=== PATIENT | female | born 1935 | race Caucasian/White ===

== ENCOUNTER 2017-11-25 07:58 | Day surgery (SDC) | payer MEDICARE, OTHER ==
[~2017-11-25 07:58] MED LIST: PROPOFOL INJ 200 MG/20 ML VIAL IV ONE
[2017-11-25 09:54] VITALS: BP 145/82
--- NOTE | 2017-11-25 12:23 | Operative Report ---
Operative Report DATE OF SURGERY: 11/25/17 Operative Report: The risks, benefits and alternatives of the procedure including risks of bleeding, perforation requiring surgery are explained to the patient in detail and informed consent was obtained. Patient was taken back to the endoscopy suite and placed in the left, lateral decubital position. Timeout was called. Propofol medications administered. A rectal examination is done which did not reveal any masses, tears or fissures. An Olympus videoscope was inserted into the patient's rectum. The scope was then carefully advanced all the way to the cecum. Cecum was identified by the usual anatomical landmarks including the ileocecal valve as well as the appendiceal office. Photodocumentation was obtained. Prep is good. Scope was then sequentially pulled back via the rest segments of the colon including the ascending colon, hepatic flexure, transverse colon, splenic flexure, descending colon and finding to the rectosigmoid portions of the colon. Retroflexion maneuver is performed. PREOPERATIVE DIAGNOSIS: Abnormal findings noted in the feces. POSTOPERATIVE DIAGNOSIS: Diverticulosis. Internal hemorrhoids OPERATION: Diagnostic colonoscopy. SURGEON: MARTHA TREVINO ANESTHESIA: LMAC TISSUE REMOVED OR ALTERED: None. COMPLICATIONS: None. ESTIMATED BLOOD LOSS: None. INTRAOPERATIVE FINDINGS: As noted above. PROCEDURE: Patient tolerated procedure well. No immediate postprocedure complications are noted. Patient discharged in good condition. Discharge date 11/25/2017. Discharge diet: Regular. Discharge activity: Regular. 2-3 week follow-up to discuss findings. Patient is instructed to call the office or proceed to the emergency room should there be any further problems or questions. At this point given her age, colorectal cancer screening either by optical colonoscopy, CT colopathy, or Cologuard colon cancer testing does not need to be further performed.
== END 2017-11-25 09:54 | disposition home or self-care (01) ==
LOC: END 07:58
PROVIDERS: ATTEND Internal Medicine Gastroenterology
PROC: 0DJD8ZZ Inspection of Lower Intestinal Tract, Via Natural or Artificial Opening Endoscopic (ICD-10-PCS; principal; 2017-11-25 09:30)
DX: K64.8 Other hemorrhoids (principal); K57.30 Diverticulosis of large intestine without perforation or abscess without bleeding; E78.2 Mixed hyperlipidemia; Z79.899 Other long term (current) drug therapy
CPT/HCPCS: 45378; J2704; 811

== ENCOUNTER 2019-03-22 08:28 | Emergency (ER) | payer MEDICARE, OTHER ==
[2019-03-22] MEDS ORDERED: HYDROCODONE/ACETAMINOPHEN 5-325 MG TABLET PO ONE (09:36)
--- NOTE | 2019-03-22 09:37 | ER Document Report ---
ED Medical Screen (RME) - General Chief Complaint: Back Pain Stated Complaint: BACK PAIN Time Seen by Provider: 03/22/19 09:36 Mode of Arrival: Ambulatory Information source: Patient Notes: Patient presents complaining of low back pain for the past 5 days. Patient states her symptoms started after performing a low impact aerobics. Patient denies any specific injury. Patient denies any fever. Patient denies any urinary retention. Patient denies any significant medical history. I have greeted and performed a rapid initial assessment of this patient. A comprehensive ED assessment and evaluation of the patient, analysis of test results and completion of the medical decision making process will be conducted by additional ED providers. TRAVEL OUTSIDE OF THE [place] IN LAST 30 DAYS: No - Related Data Allergies/Adverse Reactions: mold Allergy (Mild, Verified 11/25/17 08:11) SNEEZING/COUGHING Past Medical History - Past Medical History Cardiac Medical History: Denies: Hx Coronary Artery Disease, Hx Heart Attack, Hx Hypertension Pulmonary Medical History: Denies: Hx Asthma, Hx Bronchitis, Hx COPD, Hx Pneumonia Neurological Medical History: Denies: Hx Cerebrovascular Accident, Hx Seizures Musculoskeltal Medical History: Denies Hx Arthritis - Immunizations Hx Diphtheria, Pertussis, Tetanus Vaccination: Yes Influenza Administration Date for 07/2017 - 12/2017 Season: 07/21/17 Physical Exam - Vital signs Vitals: Temp Pulse Resp BP Pulse Ox 97.5 F 88 16 164/94 H 95 03/22/19 08:41 03/22/19 08:41 03/22/19 08:41 03/22/19 08:41 03/22/19 08:41 - Back Back: Vertebra tenderness - Lower lumbar tenderness, left paraspinal tenderness Course - Vital Signs Vital signs: Temp Pulse Resp BP Pulse Ox 97.5 F 88 16 164/94 H 95 03/22/19 08:41 03/22/19 08:41 03/22/19 08:41 03/22/19 08:41 03/22/19 08:41
--- NOTE | 2019-03-22 10:24 | RADIOLOGY REPORT (SQ) ---
EXAM DESCRIPTION: L SPINE WHOLE COMPLETED DATE/TIME: 03/22/2019 9:58 am REASON FOR STUDY: low back pain COMPARISON: None. NUMBER OF VIEWS: Five views including obliques. TECHNIQUE: AP, lateral, oblique, and sacral radiographic images acquired of the lumbar spine. LIMITATIONS: None. FINDINGS: MINERALIZATION: Osteopenia. SEGMENTATION: Normal. No transitional anatomy. ALIGNMENT: Scoliotic. Mild grade 1 listhesis at multiple levels. VERTEBRAE: Maintained height. No fracture or worrisome bone lesion. DISCS: Multilevel disc space narrowing with osteophytes. POSTERIOR ELEMENTS: Pedicles and facets are intact. No pars defect or posterior arch defects. Facet arthropathy is present. HARDWARE: None in the spine. PARASPINAL SOFT TISSUES: Normal. PELVIS: Intact as visualized. No fractures or worrisome bone lesions. SI joints intact. OTHER: No other significant finding. IMPRESSION: 1. Osteopenia. Spondylosis and scoliosis. No gross fracture allowing for limiting osteopenia. TECHNICAL DOCUMENTATION: JOB ID: [id number] [employer]- All Rights Reserved Reading location - IP/workstation name: [email or web address]
[2019-03-22 11:59] VITALS: BP 135/89
--- NOTE | 2019-03-24 13:44 | ER Document Report ---
Entered by SHAYE ALICEA SCRIBE 03/22/19 1123 Acting as scribe for:LISE MOON MD ED General - General Chief Complaint: Back Pain Stated Complaint: BACK PAIN Time Seen by Provider: 03/22/19 09:36 Primary Care Provider: SAVANNAH CHOE MD [Primary Care Provider] - Follow up as needed Mode of Arrival: Ambulatory Information source: Patient Notes: This 83-year-old healthy female patient comes emergency room for low back pain radiating to her left leg. She reports she has had back pain from time to time over the years. About 2 weeks ago she was filling up gas cans and caused her low back to become a little painful. 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 She states that she never completely filled the 5 gallon gas can so they do not get too heavy. This past Saturday morning she attended a water aerobics class and thinks she may have overdone the exercising. Saturday evening she began having some pain in her left lumbar sacral back region. It is gotten worse over the past few days, she notices during the day when she is up and about is not too bad, but when she lays down at night in bed after about 1 to 2 hours she wakes up with severe pain in her left lumbar sacral buttock region and the pain goes to her left anterior thigh region. It does not go below the knee. There is no numbness or burning associated with pain. She did see her primary care provider on and was prescribed Flexeril, also taking Tylenol and Aleve. She reports it does not seem to have improved her discomfort. TRAVEL OUTSIDE OF THE [place] IN LAST 30 DAYS: No - Related Data Allergies/Adverse Reactions: mold Allergy (Mild, Verified 11/25/17 08:11) SNEEZING/COUGHING Past Medical History - General Information source: Patient - Social History Smoking Status: Never Smoker Cigarette use (# per day): No Chew tobacco use (# tins/day): No Smoking Education Provided: No Frequency of alcohol use: Occasional Drug Abuse: None Family History: Reviewed & Not Pertinent Patient has suicidal ideation: No Patient has homicidal ideation: No Past Surgical History: Reports: Hx Appendectomy, Hx Cholecystectomy, Hx Hysterec hernandez, Hx Tonsillectomy, Other - shoulder, thumb surgery - Immunizations Hx Diphtheria, Pertussis, Tetanus Vaccination: Yes Hx Pneumococcal Vaccination: 10/21/15 Review of Systems - Review of Systems Constitutional: No symptoms reported EENT: No symptoms reported Cardiovascular: No symptoms reported Respiratory: No symptoms reported Gastrointestinal: No symptoms reported Genitourinary: No symptoms reported Female Genitourinary: No symptoms reported Musculoskeletal: See HPI, Back pain Skin: No symptoms reported Hematologic/Lymphatic: No symptoms reported Neurological/Psychological: No symptoms reported -: Yes All other systems reviewed and negative Physical Exam - Vital signs Vitals: Temp Pulse Resp BP Pulse Ox 97.5 F 88 16 164/94 H 95 03/22/19 08:41 03/22/19 08:41 03/22/19 08:41 03/22/19 08:41 03/22/19 08:41 - Notes Notes: PHYSICAL EXAMINATION: GENERAL: Well-appearing, well-nourished and in no acute distress. HEAD: Atraumatic, normocephalic. EYES: Pupils equal round and reactive to light, extraocular movements intact, sclera anicteric, conjunctiva are normal. ENT: nares patent, oropharynx clear without exudates. Moist mucous membranes. NECK: Normal range of motion, supple without lymphadenopathy LUNGS: Breath sounds clear to auscultation bilaterally and equal. No wheezes rales or rhonchi. HEART: Regular rate and rhythm without murmurs ABDOMEN: Soft, nontender, normoactive bowel sounds. No guarding, no rebound. No masses appreciated. BACK: There is tenderness to palpate the right lumbar and sacral back and buttock muscles. EXTREMITIES: Normal range of motion, no pitting or edema. No cyanosis. There is tenderness to palpate the distal anterior thigh muscles and suprapatellar tendon region. NEUROLOGICAL: Cranial nerves grossly intact. Normal speech, normal gait. Normal sensory, motor, and reflex exams. PSYCH: Normal mood, normal affect. SKIN: Warm, Dry, normal turgor, no rashes or lesions noted. Course - Vital Signs Vital signs: Temp Pulse Resp BP Pulse Ox 97.6 F 84 16 135/89 H 95 03/22/19 11:56 03/22/19 11:56 03/22/19 11:56 03/22/19 11:56 03/22/19 11:56 Discharge - Discharge Clinical Impression: Low back strain Condition: Stable Disposition: HOME, SELF-CARE Additional Instructions: Low Back Pain Three out of every four people will have an episode of disabling back pain during their lifetime. Most commonly the pain is due to straining of the muscles and ligaments in the low back. Usual treatment includes: (1) Rest on a firm surface. Avoid lying on your stomach. (2) Ice pack the painful area. After a few days, gentle heat may be used intermittently to relax the area, or ice packs can be continued. (3) Medication may be needed -- muscle relaxers and antiinflammatory medicines are commonly used. (4) As the back improves, exercises are prescribed to strengthen the back and abdominal muscles. Your doctor will advise you on the proper care for your back at each stage in your recovery. You may be better in a few days -- or healing may take several weeks. If new symptoms of a "herniated disc" (radiation of pain, numbness, or tingling down the back of the leg or weakness in the leg) occur, you should be re-examined. Further testing may be necessary. Continue taking Flexeril. Take the pain medication as prescribed if needed. You may find that the pain is tolerable during the day but you need the pain medication at night to sleep. Avoid activities that make your back pain worse. Follow-up with Dr. Choe this week for recheck of your low back pain. RETURN TO THE EMERGENCY ROOM IF ANY NEW OR WORSENING SYMPTOMS. Prescriptions: Hydrocodone/Acetaminophen [[place] 5-325 mg Tablet] 1 tab PO Q4 PRN #15 tablet PRN Reason: Referrals: SAVANNAH CHOE MD [Primary Care Provider] - Follow up as needed Scribe Attestation: 03/22/19 11:24 I personally performed the services described in the documentation, reviewed and edited the documentation which was dictated to the scribe in my presence, and it accurately records my words and actions. I personally performed the services described in the documentation, reviewed and edited the documentation which was dictated to the scribe in my presence, and it accurately records my words and actions.
== END 2019-03-22 11:58 | disposition home or self-care (01) ==
LOC: ER 08:28
DX: S39.012A Strain of muscle, fascia and tendon of lower back, initial encounter (principal); X58.XXXA Exposure to other specified factors, initial encounter; M79.652 Pain in left thigh; Z91.048 Other nonmedicinal substance allergy status
CPT/HCPCS: 99283; 72110; A9270